=== PATIENT | female | born 2000 | race Caucasian/White ===

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

== ENCOUNTER 2021-04-29 05:03 | Inpatient (IN) ==
[2021-04-29] MEDS ORDERED: Ammonia Inhalant 1 EA AMP ONE (05:51)
[2021-04-29] MEDS ORDERED: Lactated Ringers 1000 ml BAG 1,000 ML IV ONE (07:11)
[2021-04-29] MEDS ORDERED: Buffered Lidocaine 1% SYRIN 1 ml INTRADERM ONE (07:11)
[2021-04-29] MEDS ORDERED: Lactated Ringers 1000 ml BAG 1,000 ML IV SCH (08:00)
[2021-04-29] MEDS ORDERED: Glycerin ADULT 2.4 gm SUPP PR PRN (08:09)
[2021-04-29] MEDS ORDERED: Witch Hazel PAD JAR TOPICAL PRN (08:09)
[2021-04-29] MEDS: Dibucaine 1% OINT 28.35 GM TUBE PR PRN (08:31)
[2021-04-29] MEDS ORDERED: Oxytocin 10 UNITS/ML 1 ML VIAL IM ONE (08:43)
[2021-04-29 10:19] LABS: Urine Benzodiazepine Screen None Detected (None Detect); Urine Cannabinoids Screen None Detected (None Detect); Urine Opiates Screen None Detected (None Detect)
[2021-04-29] MEDS ORDERED: Lidocaine 1% VIAL 10 MG/ML VIAL ONE (11:15)
[2021-04-30 07:32] LABS: ABS Basophils 0.1 10^3/ul (0-0.2); ABS Eosinophils 0.1 10^3/ul (0-0.6); ABS Lymphocytes 2.1 10^3/ul (1.0-4.8); ABS Monocytes 0.7 10^3/ul (0-0.8); ABS Neutrophils 8.9 10^3/ul (1.5-7.7); Eosinophil % 0.6 %; Hematocrit 25 % (35-47); Hemoglobin 8.2 g/dL (12.0-16.0); Lymphocyte % 17.7 %; Mean Corpuscular HGB Conc 33 g/dL (31-36); Mean Corpuscular Hemoglobin 25 pg (27-31); Mean Corpuscular Volume 76 fL (80-97); Mean Platelet Volume 9.1 fL (7.4-10.4); Platelet Count 181 10^3/uL (150-450); Red Blood Count 3.33 10^6 /uL (3.70-4.87); Red Cell Distribution Width 16 % (10-15); White Blood Count 11.8 10^3/uL (3.5-10.8)
[2021-05-01 08:11] VITALS: BP 106/71
[2021-05-01] MEDS: Dibucaine 1% OINT 28.35 GM TUBE PR PRN (08:49)
== END 2021-05-01 12:13 | disposition home or self-care (01) | DRG 560 ==
LOC: MCHOBOUT 05:03 → MCHOB 05:43
PROVIDERS: ADMIT Midwife; ATTEND Midwife

== ENCOUNTER 2023-09-22 07:56 | Inpatient (IN) ==
[2023-09-22] MEDS ORDERED: Lactated Ringers 1000 ml BAG 1,000 ML IV ONE (08:25)
[2023-09-22] MEDS ORDERED: Nalbuphine 10 MG/ML 1 ML VIAL IV PRN (08:25)
[2023-09-22] MEDS ORDERED: Lidocaine 1% VIAL 10 MG/ML 30 ML VIAL INJ PRN (08:25)
[2023-09-22] MEDS ORDERED: Buffered Lidocaine 1% SYRIN 1 ml INTRADERM ONE (08:25)
[2023-09-22] MEDS ORDERED: Promethazine INJ(RESTRICTED) 25 MG/ML 1 ml VIAL IV PRN (08:25)
[2023-09-22] MEDS ORDERED: miSOPROStol 100 mcg TAB VAGINAL ONE ×3 (08:59→17:23)
[2023-09-22] MEDS ORDERED: Lactated Ringers 1000 ml BAG 1,000 ML IV SCH ×2 (09:00→20:00)
[2023-09-22 11:05] LABS: Urine Benzodiazepine Screen None Detected (None Detect); Urine Cannabinoids Screen None Detected (None Detect); Urine Opiates Screen None Detected (None Detect)
[2023-09-22 11:13] LABS: ABS Eosinophils 0.1 10^3/uL (0.0-0.5); ABS Lymphocytes 1.9 10^3/uL (1.0-4.8); ABS Monocytes 0.3 10^3/uL (0.0-0.9); ABS Neutrophils 8.2 10^3/uL (1.5-7.6); Eosinophil % 0.8 %; Hematocrit 33.2 % (35-45); Hemoglobin 10.9 g/dL (11.5-14.3); Mean Corpuscular Hemoglobin 24.9 pg (27-33); Mean Corpuscular Volume 75.7 fL (80-97); Mean Platelet Volume 9.1 fL (7.5-11.2); Platelet Count 183 10^3/uL (150-450); Red Blood Count 4.38 10^6/uL (3.63-4.92); Red Cell Distribution Width 17.6 % (12-17); White Blood Count 10.5 10^3/uL (3.8-11.8)
[2023-09-22 11:42] LABS: Albumin 3.6 g/dL (3.2-5.2); Creatinine, Serum 0.66 mg/dL (0.51-0.95); Globulin 3.5 g/dL (2-4); Potassium 3.5 mmol/L (3.5-5.0); Total Bilirubin 0.3 mg/dL (0.2-1.0); Total Protein 7.1 g/dL (6.4-8.9); eGFR CKD-EPI 125.5 (>60)
[2023-09-22 12:05] LABS: Activated Partial Thrombo Time 24.1 seconds (26.0-38.0); INR 0.95 (0.83-1.13)
[2023-09-22 13:54] LABS: Platelet Count 187 10^3/ul (150-450)
[2023-09-22 14:27] LABS: Schistocytes ABSENT
[2023-09-22] MEDS ORDERED: Oxytocin in LR 20,000 MILLI.UNIT/1,000 ML BAG IV SCH ×2 (18:05→19:15)
[2023-09-22] MEDS ORDERED: Witch Hazel PAD JAR TOPICAL PRN (19:15)
[2023-09-22] MEDS ORDERED: Dibucaine 1% OINT 28.35 GM TUBE PR PRN (19:15)
[2023-09-22] MEDS ORDERED: Glycerin ADULT 2.4 gm SUPP PR PRN (19:15)
[2023-09-23 07:15] LABS: ABS Basophils 0.1 10^3/uL (0.0-0.1); ABS Eosinophils 0.1 10^3/uL (0.0-0.5); ABS Lymphocytes 2.2 10^3/uL (1.0-4.8); ABS Monocytes 0.9 10^3/uL (0.0-0.9); ABS Nucleated RBC 0.01 10^3/ul; Eosinophil % 0.8 %; Hematocrit 32.9 % (35-45); Hemoglobin 10.8 g/dL (11.5-14.3); Lymphocyte % 14.7 %; Mean Corpuscular Hemoglobin 24.9 pg (27-33); Mean Corpuscular Hgb Conc 32.8 g/dL (31-36); Mean Corpuscular Volume 76.1 fL (80-97); Mean Platelet Volume 8.9 fL (7.5-11.2); Nucleated Red Blood Cells % 0.1 %/100WBC (0.0-0.8); Platelet Count 189 10^3/uL (150-450); Red Blood Count 4.33 10^6/uL (3.63-4.92); Red Cell Distribution Width 17.6 % (12-17); White Blood Count 15.3 10^3/uL (3.8-11.8)
[2023-09-23 11:39] VITALS: BP 112/80
[2023-09-24 10:58] LABS: Cytomegalovirus IgG Antibody Negative (Negative); Herpes Simplex Virus I IgG AB Negative (Negative); Rubella IgG Antibody Equivocal; Rubella IgG Antibody Index 0.9; Toxoplasma IgG Antibody Negative (Negative); Toxoplasma IgG Antibody Index <3 IU/mL
[2023-09-24 12:03] LABS: DRVVT Screen Ratio 1.21 ratio (<1.20); LAC APTT 25 sec (25 - 37); Prothrombin Time(LAC) 10.8 sec (9.4 - 12.5)
[2023-09-24 12:11] LABS: Thrombin Time (Bovine), P 18.2 sec
[2023-09-24 13:52] LABS: Cyclic Citrullinated Peptide <15.6 U
[2023-09-24 21:03] LABS: Parvovirus (B19) IgG Antibody Positive (Negative); Parvovirus (B19) IgM Antibody Negative (Negative)
== END 2023-09-23 16:55 | disposition home or self-care (01) | DRG 560 ==
LOC: MCHOBOUT 07:56 → MCHOB 08:40
PROVIDERS: ADMIT Obstetrics & Gynecology; ATTEND Registered Nurse